=== PATIENT | female | born 2000 | race African-American/Black ===

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

== ENCOUNTER → 2022-01-13 | Emergency (ER) | payer OTHER ==
[~2022-01-13] VITALS: Ht 174 cm; Wt 96.2 kg
[~2022-01-13] MED LIST: AMOX TR-K CLV1 EAC2 PO; CORTISPORIN-TC10 M1 LEFT EAR; FIORICET 50-301 EACH PO
== END | disposition home or self-care (01) ==
LOC: FSED 22:12
DX: H60.92 Unspecified otitis externa, left ear (principal); H66.92 Otitis media, unspecified, left ear; J45.909 Unspecified asthma, uncomplicated
CPT/HCPCS: 99282

== ENCOUNTER 2022-02-01 10:00 | Emergency (ER) | payer OTHER ==
[~2022-02-01] VITALS: Ht 172.7 cm; Wt 98.4 kg
[2022-02-01] MEDS ORDERED: BACITRACIN ZINC 0.9GM TP ONE ×2 (10:30→10:44)
[2022-02-01] MEDS ORDERED: BACTRIM DS TAB1 EACH PO (10:30)
== END 2022-02-01 10:38 | disposition home or self-care (01) ==
LOC: FSED 10:14
DX: S61.011A Laceration without foreign body of right thumb without damage to nail, initial encounter (principal); W26.0XXA Contact with knife, initial encounter; Y99.0 Civilian activity done for income or pay; J45.909 Unspecified asthma, uncomplicated
CPT/HCPCS: 99283

== ENCOUNTER 2022-04-28 14:37 | Emergency (ER) | payer OTHER ==
[~2022-04-28] VITALS: Ht 172.7 cm; Wt 97.1 kg
[~2022-04-28 14:37] MED LIST changes: +BACTRIM DS TAB1 EACH PO
[2022-04-28] MEDS ORDERED: DOXYCYCLINE HY100 MG PO (16:21)
[2022-04-28] MEDS ORDERED: LOTRIMIN AF12 GM TOP (16:22)
== END 2022-04-28 16:34 | disposition home or self-care (01) ==
LOC: FSED 14:41
DX: B35.4 Tinea corporis (principal); J45.909 Unspecified asthma, uncomplicated
CPT/HCPCS: 99282

== ENCOUNTER 2022-10-09 13:50 | Emergency (ER) | payer OTHER ==
[~2022-10-09] VITALS: Ht 172.7 cm; Wt 97.2 kg
[~2022-10-09 13:50] MED LIST changes: +DOXYCYCLINE HY100 MG PO; +LOTRIMIN AF12 GM TOP
[2022-10-09] MEDS ORDERED: IBUPROFEN200 MG PO (14:13)
[2022-10-09] MEDS ORDERED: AMOX TR-K CLV1 EAC2 PO (14:13)
[2022-10-09] MEDS ORDERED: NASACORT16.9 ML (14:13)
== END 2022-10-09 14:24 | disposition home or self-care (01) ==
LOC: FSED 14:02
DX: H66.93 Otitis media, unspecified, bilateral (principal); J06.9 Acute upper respiratory infection, unspecified; R51.9 Headache, unspecified; J45.909 Unspecified asthma, uncomplicated; F17.210 Nicotine dependence, cigarettes, uncomplicated
CPT/HCPCS: 99283

== ENCOUNTER 2022-10-31 08:07 | Emergency (ER) | payer OTHER ==
[~2022-10-31] VITALS: Ht 172.7 cm; Wt 97.1 kg
[~2022-10-31 08:07] MED LIST changes: +IBUPROFEN200 MG PO; +NASACORT16.9 ML
[2022-10-31] MEDS ORDERED: PREDNISONE 20 MG TAB ONE (09:09)
[2022-10-31] MEDS ORDERED: ALBUTEROL/IPRATROPIUM 3 ML NEB ONE (09:10)
[2022-10-31] MEDS ORDERED: PREDNISONE 20 MG TAB PO ONE (09:15)
[2022-10-31] MEDS ORDERED: ALBUTEROL/IPRATROPIUM 3 ML NEB NEB ONE (09:15)
[2022-10-31] MEDS ORDERED: PREDNISONE20 MG PO (09:19)
[2022-10-31] MEDS ORDERED: PROVENTIL HFA6.7 GM INH (09:20)
[2022-10-31] MEDS ORDERED: ALBUTEROL2.5 MG/3 M INH (09:21)
[2022-10-31 09:37] VITALS: PULSE 76; RESP 17; O2SAT 98
== END 2022-10-31 09:42 | disposition home or self-care (01) ==
LOC: FSED 08:12
DX: R05.9 Cough, unspecified (principal); J45.901 Unspecified asthma with (acute) exacerbation; F17.210 Nicotine dependence, cigarettes, uncomplicated
CPT/HCPCS: 83518; 87400; 99283; J7512